=== PATIENT | female | born 1980 | race African-American/Black ===

== ENCOUNTER 2020-11-08 20:04 | Emergency (ER) | payer SELFPAY ==
[~2020-11-08] VITALS: Ht 172.7 cm; Wt 136.4 kg
[2020-11-08 20:19] VITALS: Ht 172.7 cm; Wt 136.4 kg
[2020-11-08] MEDS ORDERED: VOLTAREN75 MG PO (21:26)
[2020-11-08 22:00] VITALS: BP 125/89
== END 2020-11-08 23:27 | disposition home or self-care (01) ==
LOC: D.ER 20:04
DX: S93.402A Sprain of unspecified ligament of left ankle, initial encounter (principal); W10.9XXA Fall (on) (from) unspecified stairs and steps, initial encounter; Y93.9 Activity, unspecified; Y92.9 Unspecified place or not applicable